=== PATIENT | female | born 1995 | race Caucasian/White ===

== ENCOUNTER 2019-07-04 09:44 | Outpatient (REF) | payer BC, SELFPAY ==
--- NOTE | 2019-07-04 09:00 | PAPFT_PTH ---
PATIENT: ADI LUGO LOC: [facility] U#:[id number] AGE/SX: 23/F ROOM: RE07/04/[address]: Sherley Taylor : 1995 BED: DIS: 07/04/2019 SPEC #: [id number] RECD: 07/07/19 12:52 STATUS: YRN REAramis #: [id number] YESSI: 07/04/19 09:[address]: Sherley Taylor DEPT: [facility] Cytology RECD BY: Xiao Marroquin ENTERED: 07/07/19 12:53 SP TYPE: PAPFT OTHR DR: Clary Bah MD Tissues: 1 - CX/ENDOCX FOR PAP SMEARS Procedures: PAP THIN PREP/[facility] Screening Comments: [id number] (CHLAMYDIA/GC)
[2019-07-10 14:48] LABS: Chlamydia Result Negative (Negative); GC Result Negative (Negative)
== END 2019-07-04 10:04 ==
LOC: NCHCN 09:44
PROVIDERS: PCP Pediatrics; Visit Provider Nurse Practitioner Family
DX: Z00.00 Encounter for general adult medical examination without abnormal findings (principal); Z12.4 Encounter for screening for malignant neoplasm of cervix; Z01.419 Encounter for gynecological examination (general) (routine) without abnormal findings; Z11.3 Encounter for screening for infections with a predominantly sexual mode of transmission
CPT/HCPCS: 87491; 87591; 88142